=== PATIENT | male | born 1980 | race Caucasian/White ===

== ENCOUNTER 2018-03-16 13:50 | Emergency (ER) | payer MEDICAID, SELFPAY ==
[2018-03-16 13:50] VITALS: BP 157/76; PULSE 103; RESP 16; TEMP 37.2; O2SAT 95; BMI 24.1
--- NOTE | 2018-03-16 14:33 | RAD_ITS ---
STUDY: X-RAY - RIGHT HAND REASON FOR EXAM: Male, 37 years old. Swelling and erythematous following injury. TECHNIQUE: 3 view(s) of the hand. COMPARISON: None. FINDINGS: Normal radiocarpal articulation. Normal distal radioulnar joint. Normal visualized carpal bones. Normal carpal articulations Normal carpometacarpal articulation of the thumb. Normal second through fifth carpometacarpal joints. Normal metacarpi. Normal metacarpophalangeal joint of the thumb. Normal interphalangeal joint of the thumb. Normal proximal and distal phalanges of the thumb. Normal metacarpophalangeal joints of the second through fifth fingers. Normal proximal and distal interphalangeal joints of the second through fifth fingers. Normal phalanges of the second through fifth fingers. Soft tissue swelling. RAD/Hand Min 3 Views IMPRESSION: Soft tissue swelling. Electronically Signed: Jose Angel Carlisle MD at 14:52 EDT Tel [phone], Service support ,
--- NOTE | 2018-03-16 14:56 | ED.VISSUMM ---
- ER Visit Summary Date of Service: 03/16/18 Chief Complaint: Right hand injury History of Present Illness: The patient is a 37 M who is right-hand dominant. Patient had a daniel on his skin for 5 days ago. He then hit his hand with a hammer 3 days ago. He is complaining of hand pain, redness, and swelling. Last tetanus update was 2 years ago. Physical Examination: Vital signs are remarkable for blood pressure 157/76, otherwise unremarkable. Patient sitting upright in bed no acute distress. He is nontoxic appearing. Right upper extremity examination significant for 1/2 cm superficial laceration over the index MCP joint. He has surrounding erythema. There is tenderness along the index metacarpal. There is no sign of flexor tenosynovitis. Test Results: Right hand x-rays are unremarkable per my review. Emergency Department Course and Treatment: Patient is treated with Naprosyn, Bactrim, and Keflex. He will be continued on his medications at home. If redness worsens or develops fever he is to present for IV antibiotics. Treatment Plan: [] Disposition: Discharge Impression: 1. Right hand cellulitis 2. Crush injury right hand This note was generated with [email or web address] dictation software. It may contain incorrect words, spelling, and punctuation that were not noted in review of the chart prior to signing ED Disposition - Plan for ED Patient: Chief Complaint: Upper Extremity Injury Referrals: Naun Garcia MD [Primary Care Provider] -
--- NOTE | 2018-03-16 15:00 | ED.DCSUM_ITS ---
- ER Visit Summary Date of Service: 03/16/18 Chief Complaint: Right hand injury History of Present Illness: The patient is a 37 M who is right-hand dominant. Patient had a daniel on his skin for 5 days ago. He then hit his hand with a hammer 3 days ago. He is complaining of hand pain, redness, and swelling. Last tetanus update was 2 years ago. Physical Examination: Vital signs are remarkable for blood pressure 157/76, otherwise unremarkable. Patient sitting upright in bed no acute distress. He is nontoxic appearing. Right upper extremity examination significant for 1/2 cm superficial laceration over the index MCP joint. He has surrounding erythema. There is tenderness along the index metacarpal. There is no sign of flexor tenosynovitis. Test Results: Right hand x-rays are unremarkable per my review. Emergency Department Course and Treatment: Patient is treated with Naprosyn, Bactrim, and Keflex. He will be continued on his medications at home. If redness worsens or develops fever he is to present for IV antibiotics. Treatment Plan: [] Disposition: Discharge Impression: 1. Right hand cellulitis 2. Crush injury right hand This note was generated with [employer] dictation software. It may contain incorrect words, spelling, and punctuation that were not noted in review of the chart prior to signing ED Disposition - Plan for ED Patient: Chief Complaint: Upper Extremity Injury Referrals: Naun Garcia MD [Primary Care Provider] -
--- NOTE | 2018-03-16 15:00 | ED.DEP ---
ED Disposition - Plan for ED Patient: Disposition: Home or Assisted Living Chief Complaint: Upper Extremity Injury Instructions: ED Crush Injury Finger No Fx, ED Infec Skin Cellulitis Prescriptions: Cephalexin [Keflex] 500 mg PO Q6 #40 capsule Naproxen [Naprosyn] 500 mg PO BID #14 tablet Smz/Tmp Ds [Bactrim Ds] 1 tablet PO BID #20 tablet Referrals: Naun Garcia MD [Primary Care Provider] - 1 Week
[2018-03-16] MEDS: Naproxen 500 MG Tablet PO (15:13)
[2018-03-16] MEDS: Smz/Tmp Ds Tablet 1 TABLET PO (15:13)
[2018-03-16] MEDS: Cephalexin 250 MG Capsule 500 MG PO (15:13)
[2018-03-16 15:14] VITALS: BP 143/87; PULSE 96; RESP 14; O2SAT 98
== END 2018-03-16 15:20 | disposition home or self-care (01) ==
PROVIDERS: Emergency Provider Emergency Medicine
DX: L03.113 Cellulitis of right upper limb (principal); S67.21XA Crushing injury of right hand, initial encounter; W22.8XXA Striking against or struck by other objects, initial encounter; Y93.9 Activity, unspecified; Y92.89 Other specified places as the place of occurrence of the external cause; Y99.9 Unspecified external cause status; E11.9 Type 2 diabetes mellitus without complications
CPT/HCPCS: 73130; 99282

== ENCOUNTER 2018-06-05 02:33 | Emergency (ER) | payer MEDICAID, SELFPAY ==
[2018-06-05 02:33] VITALS: BP 158/91; PULSE 104; RESP 20; TEMP 36.7; O2SAT 100; BMI 23.9
[2018-06-05] MEDS: Naproxen 500 MG Tablet PO (03:14)
[2018-06-05] MEDS: Smz/Tmp Ds Tablet 1 TABLET PO (03:14)
--- NOTE | 2018-06-05 03:56 | ED.VISSUMM ---
- ER Visit Summary Date of Service: 06/05/18 Chief Complaint: Wound eval left fifth digit History of Present Illness: The patient is a 37 M presents for evaluation of his left fifth digit. States he cut it accident with a carving knife 2 days ago. Increased swelling. States his drainage. No fever, chills, sweats. He is a diabetic. Similar symptoms in the past placed on Bactrim with improvement. Physical Examination: General: Alert and oriented ?3, no acute distress HEENT: Normocephalic, atraumatic. Moist mucosa membranes Neck: supple, nontender. Cardiovascular: Regular rate and rhythm, no murmurs Respiratory: Normal breath sounds, symmetric, no distress Abdomen: Soft, nontender, nondistended Extremities: Left hand: Fifth digit noted 1 cm healing laceration across the dorsal PIP joint. No active bleeding or drainage. There is swelling of the finger proximal and middle phalanx. There is no streaking up the hand. Neuro: no focal neurological deficits. Test Results: [] Emergency Department Course and Treatment: Patient with swelling to the digit with the redness. There is no streaking. [place] is 1 out of 4. Afebrile in the ED. wound care discussed. He started on Bactrim and naproxen. Signs and symptoms discussed return. Otherwise follow-up with PCP. Treatment Plan: [] Disposition: Discharge Impression: 1. Left fifth digit laceration 2. Left fifth digit cellulitis This note was generated with [employer] dictation software. It may contain incorrect words, spelling, and punctuation that were not noted in review of the chart prior to signing ED Disposition - Plan for ED Patient: Disposition: Home or Assisted Living Chief Complaint: Wound Diagnosis: left 5th digit cellulitis Instructions: ED Infec Skin Cellulitis Prescriptions: Naproxen [Naprosyn] 500 mg PO BID #20 tablet Smz/Tmp Ds [Bactrim Ds] 1 tablet PO BID #20 tablet Referrals: [facility] Doctor,Out of [Primary Care Provider] - 3-5 Days
[2018-06-05 04:18] VITALS: RESP 12
== END 2018-06-05 04:19 | disposition home or self-care (01) ==
PROVIDERS: Emergency Provider Emergency Medicine
DX: L03.012 Cellulitis of left finger (principal); S61.217A Laceration without foreign body of left little finger without damage to nail, initial encounter; W26.0XXA Contact with knife, initial encounter; Y93.9 Activity, unspecified; Y92.89 Other specified places as the place of occurrence of the external cause; Y99.9 Unspecified external cause status; E11.9 Type 2 diabetes mellitus without complications; I10 Essential (primary) hypertension; Z72.0 Tobacco use
CPT/HCPCS: 99283

== ENCOUNTER 2018-06-07 01:58 | Emergency (ER) | payer MEDICAID, SELFPAY ==
[2018-06-07 02:00] VITALS: BP 142/77; PULSE 113; RESP 17; TEMP 36.6; O2SAT 100; BMI 23.5
--- NOTE | 2018-06-07 02:42 | RAD_ITS ---
STUDY: X-RAY - LEFT HAND, ATTENTION FIFTH FINGER REASON FOR EXAM: Male, 37 years old. Laceration to the left fifth finger, now with swelling. TECHNIQUE: 3 view(s) of the finger were obtained. COMPARISON: None. FINDINGS: Normal metacarpal head. Normal metacarpophalangeal joint. Normal proximal phalanx. Normal middle phalanx. Normal distal phalanx. Normal proximal interphalangeal joint. Normal distal interphalangeal joint. Soft tissue swelling involving the fifth digit. No soft tissue foreign body. No subcutaneous gas. RAD/Finger(s) Min 2 Views IMPRESSION: Soft tissue swelling of the left fifth finger with no underlying fracture or dislocation and no soft tissue foreign body or gas loculation. Electronically Signed: Lyle Ramirez MD at 3:20 EDT Tel , Service support ,
--- NOTE | 2018-06-07 02:45 | ED.VISSUMM ---
- ER Visit Summary Date of Service: 06/07/18 Chief Complaint: Left small finger red, swollen and infected History of Present Illness: The patient is a 37 M hand dominant. He is an insulin-dependent to has an insulin pump. States on accidentally nicked the dorsum of his left small finger with a knife. It then became infected. He was seen in the ER a day or so ago. Charted on Bactrim which is only taken 2 dosages so far. And the finger is now more red, swollen than it was previously. He denies any fever. He denies any streaking. Physical Examination: Well-appearing young male. Vital signs are stable and afebrile. He does not look septic or toxic. H EENT exam unremarkable. Neck nontender no lymphadenopathy. Lungs clear to auscultation bilaterally. Heart regular rhythm no murmur. Abdomen soft nontender. Extremities moves all 4. Neurovascular intact. His left small finger is significantly red and swollen. He is able however to do complete extension and flexion flexion is somewhat limited due to pain and more so the amount of swelling. Distally he has cap refill and touch sensation. Currently he does not have tenosynovitis. He does have a sausage digit. There is no lymphangitic streaking in his form. And no swollen or tender left axillary lymphadenopathy. Neurologically is awake and alert without focal motor deficits. Test Results: History normal except for a sodium of 135. Blood sugars elevated at 434. Normal creatinine and gap. CBC is pending. X-ray of his left small finger showed soft tissue swelling. No bony abnormality. No subcu gas. Read both by myself and the radiologist. Emergency Department Course and Treatment: Patient is a severely swollen and infected left small finger with cellulitis. This could develop into tenosynovitis. He will need to be started on IV antibiotics and admitted. He will be started on IV Zosyn. I will speak to the hospitalist about admission. Treatment Plan: IV antibiotics and admission. Patient states he absolutely has to go home and get his insulin pump equipment and then states he will come back to be admitted. He understands he could lose his finger or have an overwhelming infection or develop DKA. He did not want any antibiotics started at this time until he returns. He did not want any insulin at this time for his hyperglycemia and states he will take care of that at home. Disposition: Admission Impression: Left small finger cellulitis Acute hyperglycemia with a history of insulin-dependent diabetes Signing out AMA and plans to return to be admitted This note was generated with [employer] dictation software. It may contain incorrect words, spelling, and punctuation that were not noted in review of the chart prior to signing ED Disposition - Plan for ED Patient: Chief Complaint: Wound Referrals: [facility] Doctor,Out of [Primary Care Provider] -
--- NOTE | 2018-06-07 03:05 | ED.RN ---
PT REPORTS TO THIS RN THAT HE NEEDS TO GO HOME TO GET HIS BELONGINGS AND SUPPLIES TO MANAGE HIS INSULIN PUMP. THIS RN CALLED TO PHARMACY TO SEE IF THERE WAS A WAY TO GET HIS SUPPLIES HERE AT THE HOSPITAL. PT EDUCATED THAT IF HE LEAVES DURING HIS TX, THAT HE WILL HAVE TO SIGN OUT AMA. PT BLOOD DRAWN AND XRAY COMPLETED. DR. SHIPLEY. INFORMED. CHARGE NURSE MINOR INFORMED.
[2018-06-07 03:17] LABS: Absolute Lymphocyte Count 1.72 X10^3/ul (0.83-4.51); Basophil# 0.03 X10^3/uL; Basophil% 0.3 % (0-1); Eosinophil# 0.39 X10^3/uL; Eosinophils% 3.6 % (0-5); Hematocrit 37.9 % (40-54); Hemoglobin 13.6 g/dl (13.0-16.5); Lymphocyte # 1.72 X10^3/ul (4.0); Lymphocyte % 15.7 % (19-41); Mean Corp Hgb Conc 35.9 g/gl (32-36); Mean Corpuscular Hgb 31.9 pg (27.0-32.0); Monocyte# 0.77 X10^3/uL; Neutrophil # 8.02 X10^3/uL (2.7-7.7); Neutrophil % 73.2 % (47-70); Platelet Count 293 K/mm3 (150-450); RBC Distribution Width SD 38.7 fl (35.1-43.9); Red Blood Count 4.26 M/mm3 (4.6-6.2)
[2018-06-07 03:24] LABS: Anion Gap 8 (5-15); BUN 10 mg/dL (7-18); BUN/Creat Ratio 9.1 RATIO (10-20); Calcium,Total 8.3 mg/dL (8.5-10.1); Chloride 99 mmol/L (98-107); EST Glomerular Filtration Rate 81 mL/min (>60); Est Glom Filt Rate - Afr Amer 98 mL/min (>60); Estimated Creatinine Clearance 87.63 ml/min; Glucose 434 mg/dL (74-106); Potassium 4.1 mmol/L (3.5-5.1); Sodium Level 135 mmol/L (136-145)
--- NOTE | 2018-06-07 03:33 | DCINST.ED_ITS ---
ED Disposition - Plan for ED Patient: Disposition: Home or Assisted Living Chief Complaint: Wound Instructions: ED Infec Skin Cellulitis Referrals: [facility] Doctor,Out of [Primary Care Provider] - Additional Instructions: Go home and take care of whatever you need to. Return to the ER and we will get you admitted for IV antibiotics her finger. Take your insulin as needed at home. Understand that if you do not come back you are risking the loss of your left small finger due to a worsening infection or other complications that could develop.
[2018-06-07 03:34] VITALS: BP 142/77; PULSE 113; RESP 15
[2018-06-07 03:35] LABS: POSITIVE COUNT NO; POSITIVE DIFFERENTIAL NO; POSITIVE MORPHOLOGY NO
--- NOTE | 2018-06-07 03:35 | ED.RN ---
PT REPORTS HE NEEDS TO SIGN OUT AMA IN ORDER TO GO HOME & GET HIS SUPPLIES FOR HIS INSULIN PUMP AND THEN HE WILL COME BACK FOR ADMISSION TO [facility].
== END 2018-06-07 03:35 | disposition home or self-care (01) ==
PROVIDERS: Emergency Provider Emergency Medicine
DX: L03.012 Cellulitis of left finger (principal); E11.65 Type 2 diabetes mellitus with hyperglycemia; Z79.4 Long term (current) use of insulin
CPT/HCPCS: 36415; 73140; 80048; 85025

== ENCOUNTER 2018-06-07 06:28 | Inpatient (IN) | payer MEDICAID, SELFPAY ==
[2018-06-07] VITALS (9 sets, daily range): BP systolic 125–155; BP diastolic 72–84; PULSE 80–118; RESP 16–20; TEMP 36.6–37; O2SAT 97–99; BMI 23.7; BMI 23.8
[2018-06-07 07:06] LABS: Bedside Glucose 127 mg/dL (70-110)
--- NOTE | 2018-06-07 07:15 | NURSING ---
DR HAMMOND CALLED BACK
--- NOTE | 2018-06-07 07:24 | NURSING ---
MED SURG LEFT FIFTH TOE CELLULITIS ASHELFAH
[2018-06-07] MEDS: 0.9% Normal Saline 1,000 ML 100 ML IV ×2 (08:30→20:23)
[2018-06-07 08:34] LABS: Erythrocyte Sedimentation Rate 15 mm/hr (0-15)
[2018-06-07] MEDS: Vancomycin IV 1,000 MG/200 ML BAG 200 MG IV (08:40)
[2018-06-07 08:51] LABS: Hemoglobin A1c 11.6 % (4.2-6.3)
--- NOTE | 2018-06-07 09:03 | HP.PCM_ITS ---
Problem List (1) Cellulitis of the left fifth finger Status: Acute (2) Type 1 diabetes mellitus Status: Chronic History of Present Illness Date of Admission: 06/07/18 Chief Complaint: Left fifth finger swelling, redness and pain. The patient is a 37 year old M with past medical history as mentioned above presented to the emergency room for left fifth finger swelling, erythema and pain. His symptoms started 3 days ago when he had a small cut on the dorsal aspect of the left fifth finger accidentally with a carving knife. On the second day after he had that cut, his left fifth finger starts to swell up, became red and he has some pain. He came to the emergency room that day, was evaluated and was discharged home on Bactrim. He returned to the emergency department this morning for worsening erythema, swelling and pain. He complains of left fifth finger pain, dull aching pain, 8 and half out of 10 in severity, not radiating, associated with increasing swelling and redness of that finger, pain aggravated by movement of his finger and without relieving factors. He mentioned that he took his Bactrim for the last couple of days without any improvement. He denies fever or chills. He does have diabetes type 1 and he has been on insulin pump and he mentioned that his blood sugar usually not controlled and usually in the 400s. In the emergency department, patient was tachycardic, afebrile, blood pressure was not elevated, pulse ox is maintained on room air. His routine blood work was unremarkable. His ESR was normal, CRP was elevated. His hemoglobin A1c was 11.6. X-ray of the left fifth finger revealed soft tissue swelling. He is being admitted for left fifth finger cellulitis with failure of outpatient therapy. Past Medical History Past Medical History (Chronic Problems): Chronic Problems Type 1 diabetes mellitus (Chronic) Allergies fexofenadine [From Funmi] Adverse Reaction (Verified 06/07/18 06:31) Vomiting meloxicam Adverse Reaction (Verified 06/07/18 06:31) Vomiting Home Medications: Ambulatory Orders Medication Instructions Recorded Insulin Lispro [Humalog] 0 unit SQ PRN PRN 03/16/18 Lisinopril [Zestril] 20 mg PO QHS 03/16/18 Naproxen [Naprosyn] 500 mg PO BID #20 tablet 06/05/18 Smz/Tmp Ds [Bactrim Ds] 1 tablet PO BID #20 tablet 06/05/18 Surgical History: no surgical history Psychiatric History: No pertinent psych hx Lives: Spouse/ Significant Other Smoking Status: Current every day smoker Tobacco Use: Cigarettes Alcohol: Rare Drugs: None - *Family History Maternal History Items: No pertinent history Paternal History Items: No pertinent history Review of Systems Constitutional: Denies: Anorexia, Chills, Fever, Weakness Eyes: Denies: Blurred vision, Double vision, Drainage, Redness HEENT: Denies: Difficulty Hearing, Dysphasia, Eye Pain, Nasal Congestion, Sore Throat Cardiovascular: Denies: Chest Pain, Chest Pressure, Chest Tightness, Edema, Heaviness, Light Headedness, Palpitations, Syncope Respiratory: Denies: Cough, Pleuritic Pain, Shortness of Breath, Sputum production, Wheezing Gastrointestinal: Denies: Abdominal Pain, Constipation, Diarrhea, Nausea, Vomiting Genitourinary: Denies: Dysuria, Frequency, Hematuria Musculoskeletal: Reports: Hand Pain, - - Finger pain.. Denies: Arm Pain, Back Pain, Foot Pain Skin: Denies: Dryness, Rash Neurological: Denies: Balance problems, Blurred vision, Change in Speech, Slurred speech, Confusion, Headaches, Incoordination, Numbness Psychiatric: Denies: Anxiety, Depression Endocrine: Denies: Change in Body Habitus, Polydipsia VTE Information - Inpt Only VTE Present on Admission: No VTE Mechan Device Prophylaxis: None VTE Pharm Prophylaxis ordered?: No Patient Problems: Active and Suspected Problems Cellulitis of the left fifth finger (Acute) - Physical Exam General: Alert, Oriented x3, Cooperative, No apparent distress HEENT: Atraumatic, PERRLA, EOMI, Normocephalic Oral: Moist Mucosa, No Gingival or Mucosal Lesions/ Ulcerations Neck: Supple, No JVD, Negative Carotid Bruits, Trachea Midline, Thyroid Normal Size and Texture Lungs: Clear to auscultation, Normal air movement, No rhonchi, No wheeze, No rales Cardiovascular: Regular rate, Regular Rhythm, Normal S1, Normal S2, No murmurs, PMI Normal, Tachycardic Abdomen: Bowel Sounds Present, Soft, Non Tender, Non-Distended, No Hepato- splenomegaly Extremities: No clubbing, No cyanosis, No edema, - Skin: No rashes, No breakdown, - - Left fifth finger: Swelling and erythema involving the whole left fifth finger, tender to palpation, small cut on the dorsal aspect of the left fifth finger. Lymphatic: No Cervical, Supraclavicular, or Inguinal Adenopathy Neurological: Cranial nerves II-XII grossly intact, Motor Exam 5/5 strength throughout Psych/Mental Status: Normal Affect, Appropriate, Alert and oriented to time, place, person, mood and affect Vital Signs Temp Pulse Resp BP Pulse Ox 98.1 F 118 H 20 H 155/84 H 99 06/07/18 06:29 06/07/18 06:29 06/07/18 06:29 06/07/18 06:29 06/07/18 06:29 Weight: 152 lb 4.8 oz Body Mass Index (BMI) 23.8 Laboratory Tests Past 24 Hrs 06/07/18 08:10 S.aureus Protein A PCR Pending MRSA (PCR) Pending Laboratory data: WBC 11, hemoglobin 15.6, platelet count is 293,000. Sodium 135, potassium 4.1, chloride 99, bicarb is 28, BUN 10, creatinine 1.1, glucose 434. ESR 15, C-reactive protein is 73.6, hemoglobin A1c is 11.6. Assessment/Plan All Active Problems Cellulitis of the left fifth finger (Acute) This is a 37 years old male patient presented to the emergency room because of worsening left fifth finger pain, swelling and erythema after he had a small accidental cut by a knife, was started on Bactrim 2 days ago and he returned to the ED because of worsening symptoms and he is being admitted for acute bacterial left fifth finger cellulitis with failure of outpatient therapy. #1 acute left fifth finger cellulitis: Without evidence of sepsis or severe sepsis. He is tachycardic, afebrile, blood pressure stable, pulse ox is maintained on room air. He has no leukocytosis. X-ray of the left fifth finger reviewed, revealed soft tissue swelling, no fractures. His sounds normal , CRP is elevated. Plan: Admit to [facility] floor, wound culture, blood culture, IV fluids, Tylenol as needed, OxyIR as needed, IV vancomycin, wound MRSA screen , repeat CBC and BMP tomorrow morning. #2 uncontrolled type 1 diabetes mellitus: Patient is on insulin pump. He mentioned that his blood sugars usually in the 400s. His hemoglobin A1c is 11.6. Blood sugar is 434. Plan: ADA diet, Accu-Cheks, insulin sliding scale, continue insulin by insulin pump, continue lisinopril. #3 DVT prophylaxis: Low risk patient, no prophylaxis indicated. This note was generated with [employer] dictation software. It may contain incorrect words, spelling, and punctuation that were not noted in checking the note before signing. Code Visit Inpatient E&M: 01332 Init Hosp L3
--- NOTE | 2018-06-07 10:30 | CASEMGMT ---
RN EZEKIEL Face to Face with patient for initial transition planning/care coordination assessment. RN CM introduced self and role at [facility]. Patient lying in bed, alert and oriented. Patient willing to participate in assessment and is able to answer all questions appropriately. Care providers, pharmacy, and demographics verified. See link attached. Patient wishes to discharge home, denies need for home health at this time. Patient states he has no further needs or concerns at this time. CM to follow for discharge planning needs that may arise. Disposition Plan: Patient to discharge home with follow-up plans in place.
[2018-06-07 11:27] LABS: M R Staph aureus DNA By PCR Negative (Negative); Probe Check PASS; Staph aureus DNA By PCR POSITIVE (Negative)
[2018-06-07 12:46] LABS: Bedside Glucose 143 mg/dL (70-110)
[2018-06-07] MEDS: Cefazolin 2 GM in 0.9% Normal Saline 100 ML IV ×2 (14:25→22:37)
[2018-06-07 17:20] LABS: Bedside Glucose 142 mg/dL (70-110)
--- NOTE | 2018-06-07 18:48 | NURSING ---
PATIENT STATES HE WANTS A CIGARETTE. EXPLAINED HOSPITAL POLICY TO PATIENT. OFFERED TO GET NICOTINE PATCH OR GUM ORDERED. PT DENIES NEED. WILL MONITOR.
[2018-06-07] MEDS: Lisinopril 20 MG Tablet PO (22:36)
[2018-06-07] MEDS: Insulin Bolus Pump SC (22:37)
[2018-06-07 22:46] LABS: Bedside Glucose 258 mg/dL (70-110)
[2018-06-07] MEDS: Acetaminophen 325 MG Tablet 650 MG PO (23:00)
[2018-06-08] VITALS (10 sets, daily range): BP systolic 109–132; BP diastolic 75–92; PULSE 64–90; RESP 16–18; TEMP 36.4–37; O2SAT 97–99
--- NOTE | 2018-06-08 03:06 | NURSING ---
Patient outside of nursing station waving at this nurse to come and assist him. I went to patient to see what was wrong. Patient appeared very anxious and upset. Stated nursing staff had not been in his room for over 2 hours and his pain was unbearable in his right hand. He showed that his left hand was wear the infection was. He said he wanted to speak to the charge nurse. I informed patient I would notify both Annabelle and Mary. Patient left for room at a quick walk, visibly frustrated. SHAN Alanis, notified.
[2018-06-08] MEDS: LORazepam 0.5 MG Tablet PO (03:37)
[2018-06-08 03:46] LABS: Bedside Glucose 110 mg/dL (70-110)
[2018-06-08] MEDS: Cefazolin 2 GM in 0.9% Normal Saline 100 ML IV ×3 (06:02→22:51)
[2018-06-08 06:18] LABS: Absolute Lymphocyte Count 2.66 X10^3/ul (0.83-4.51); Absolute Neutrophil Count 4.2 X10^3/uL (2.0-7.7); Basophil# 0.05 X10^3/uL; Basophil% 0.6 % (0-1); Eosinophil# 0.45 X10^3/uL; Eosinophils% 5.6 % (0-5); Hematocrit 40.1 % (40-54); Hemoglobin 13.8 g/dl (13.0-16.5); Lymphocyte # 2.66 X10^3/ul (4.0); Lymphocyte % 33.1 % (19-41); Mean Corp Hgb Conc 34.4 g/gl (32-36); Mean Corpuscular Hgb 31.5 pg (27.0-32.0); Mean Corpuscular Volume 91.6 fL (80-94); Mean Platelet Vol. 9.9 fl (6.2-12.0); Monocyte# 0.64 X10^3/uL; Neutrophil # 4.22 X10^3/uL (2.7-7.7); Neutrophil % 52.6 % (47-70); Platelet Count 315 K/mm3 (150-450); RBC Distribution Width CV 12.4 % (11.6-14.6); RBC Distribution Width SD 40.9 fl (35.1-43.9); Red Blood Count 4.38 M/mm3 (4.6-6.2)
[2018-06-08 06:26] LABS: POSITIVE COUNT NO; POSITIVE DIFFERENTIAL NO; POSITIVE MORPHOLOGY NO
[2018-06-08 06:41] LABS: Anion Gap 6 (5-15); BUN 8 mg/dL (7-18); BUN/Creat Ratio 8.9 RATIO (10-20); Calcium,Total 8.1 mg/dL (8.5-10.1); Chloride 107 mmol/L (98-107); EST Glomerular Filtration Rate 102 mL/min (>60); Est Glom Filt Rate - Afr Amer 123 mL/min (>60); Estimated Creatinine Clearance 107.11 ml/min; Glucose 62 mg/dL (74-106); Potassium 3.8 mmol/L (3.5-5.1); Sodium Level 141 mmol/L (136-145)
[2018-06-08] MEDS: 0.9% Normal Saline 1,000 ML 100 ML IV ×2 (09:11→22:00)
--- NOTE | 2018-06-08 09:35 | PN_ITS ---
Patient Problems: Active and Suspected Problems Cellulitis of the left fifth finger (Acute) Subjective: Chief complaint: Follow-up after admission for acute left fifth finger cellulitis. Patient seen and examined. No acute events overnight. Pain on the left fifth finger is getting better. Also, swelling is more localized to mid interphalangeal joints, erythema is getting better. He has been afebrile, heart rate is down to normal, blood pressure stable. - Physical Exam General: Alert, Oriented x3, Cooperative, No apparent distress HEENT: Atraumatic, PERRLA, EOMI Oral: Moist Mucosa, No Gingival or Mucosal Lesions/ Ulcerations Neck: Supple, No JVD, Negative Carotid Bruits, Trachea Midline, Thyroid Normal Size and Texture Lungs: Clear to auscultation, Normal air movement, No rhonchi, No wheeze, No rales Cardiovascular: Regular rate, Regular Rhythm, Normal S1, Normal S2, No murmurs Abdomen: Bowel Sounds Present, Soft, Non Tender, Non-Distended, No Hepato- splenomegaly Extremities: No clubbing, No cyanosis, No edema Skin: No rashes, No breakdown Lymphatic: No Cervical, Supraclavicular, or Inguinal Adenopathy Neurological: Cranial nerves II-XII grossly intact, Motor Exam 5/5 strength throughout Psych/Mental Status: Normal Affect, Appropriate, Alert and oriented to time, place, person, mood and affect Vital Signs Temp Pulse Resp BP Pulse Ox 98.6 F 82 16 132/79 H 99 06/08/18 02:15 06/08/18 07:39 06/08/18 02:15 06/08/18 02:15 06/08/18 02:15 Oxygen Delivery Method Room Air Weight: 152 lb 4.8 oz Body Mass Index (BMI) 23.8 Intake and Output for Last 24 Hours 06/06/18 06/07/18 06/08/18 23:59 23:59 23:59 Intake Total 2606 / 2606 1321 / 1321 Balance 2606 / 2606 1321 / 1321 Microbiology Past 72 Hours 06/07/18 08:10 Gram Stain - Final Wound Drainage - Hand Laboratory Tests Past 24 Hrs 06/07/18 06/08/18 06/08/18 08:10 05:54 05:54 WBC 8.0 RBC 4.38 L Hgb 13.8 Hct 40.1 MCV 91.6 MCH 31.5 MCHC 34.4 RDW 12.4 RDW Differential 40.9 Plt Count 315 MPV 9.9 Immature Gran % (Auto) 0.100 Neut % (Auto) 52.6 Lymph % (Auto) 33.1 [place] % (Auto) 8.0 Eos % (Auto) 5.6 H Baso % (Auto) 0.6 Absolute Neuts (auto) 4.2 Absolute Lymphs (auto) 2.66 Total Counted Not Reportable Sodium 141 Potassium 3.8 Chloride 107 Carbon Dioxide 28.0 Anion Gap 6 BUN 8 Creatinine 0.90 Estim Creat Clear Calc 107.11 Est GFR (MDRD) Af Amer 123 Est GFR (MDRD) Non-Af 102 BUN/Creatinine Ratio 8.9 L Glucose 62 L Calcium 8.1 L S.aureus Protein A PCR POSITIVE H MRSA (PCR) Negative POC Glucose 06/08/18 06/07/18 06/07/18 03:41 22:33 17:09 POC Glucose 110 258 H 142 H 06/07/18 11:54 POC Glucose 143 H Medical Necessity - Tobacco Use Smoking Status: Current every day smoker Tobacco Use: Cigarettes Assessment/Plan All Active Problems Cellulitis of the left fifth finger (Acute) This is a 37 years old male patient presented to the emergency room because of worsening left fifth finger pain, swelling and erythema after he had a small accidental cut by a knife, was started on Bactrim 2 days ago and he returned to the ED because of worsening symptoms and he is being admitted for acute bacterial left fifth finger cellulitis with failure of outpatient therapy. #1 acute left fifth finger cellulitis: He is on IV cefazolin. He has been afebrile overnight, no leukocytosis. Heart rate is back down to normal, blood pressure stable. Swelling and erythema of the left fifth finger is more localized today, pain is getting better. X-ray of the left fifth finger reviewed, revealed soft tissue swelling, no fractures. His sounds normal, CRP is elevated. Blood cultures pending, wound culture showed no organism, final is pending. Plan to continue same treatment, reassess later today. #2 uncontrolled type 1 diabetes mellitus: He is on insulin pump as well as sliding scale. Blood sugar has been stable. Patient is on insulin pump. He mentioned that his blood sugars usually in the 400s. His hemoglobin A1c is 11.6. Plan to continue same treatment. #3 DVT prophylaxis: Low risk patient, no prophylaxis indicated. This note was generated with [employer] dictation software. It may contain incorrect words, spelling, and punctuation that were not noted in checking the note before signing. Code Visit Inpatient E&M: 90388 Subs Hosp L2
[2018-06-08 10:51] LABS: Bedside Glucose 126 mg/dL (70-110)
[2018-06-08] MEDS: Acetaminophen 325 MG Tablet 650 MG PO (14:27)
[2018-06-08] MEDS: ALPRAZolam 0.5 MG Tablet PO (18:16)
[2018-06-08] MEDS: Lisinopril 20 MG Tablet PO (22:52)
[2018-06-08] MEDS: Insulin Bolus Pump SC (22:57)
[2018-06-08 23:10] LABS: Bedside Glucose 162 mg/dL (70-110)
[2018-06-09] MEDS: Acetaminophen 325 MG Tablet 650 MG PO (01:14)
[2018-06-09 02:59] VITALS: PULSE 75
[2018-06-09 04:00] VITALS: BP 123/72; PULSE 71; RESP 18; TEMP 36.6; O2SAT 100
[2018-06-09 04:38] VITALS: PULSE 92
[2018-06-09] MEDS: Cefazolin 2 GM in 0.9% Normal Saline 100 ML IV (06:21)
[2018-06-09 07:05] LABS: Bedside Glucose 90 mg/dL (70-110)
[2018-06-09 07:50] VITALS: PULSE 61
[2018-06-09 08:15] VITALS: BP 104/56; PULSE 76; RESP 16; TEMP 36.4; O2SAT 96
--- NOTE | 2018-06-09 09:33 | DCINST_ITS ---
- Discharge Diagnoses Current Active Problems: Current Active and Chronic Problems Cellulitis of the left fifth finger (Acute) Type 1 diabetes mellitus (Chronic) You will use the following diet at home:: Calorie/Carbohydrate Controlled ( specify 1200, 1400, etc) - 1800 wiley Your food should be the consistency of: Regular Discharge Activity: Return to Normal Activity Weight Bearing Status: Full weight bearing Call your doctor if you observe: Fever of 101 or Higher, Shortness of breath, Dizziness, Fainting spells, Chest pain, Increased palpitations (irregular heartbeat), Uncontrolled pain Additional Instructions: Use [id number] Aleve or Tylenol as needed for pain. Allergies/Adverse Reactions: Allergies fexofenadine [From Funmi] Adverse Reaction (Verified 06/07/18 06:31) Vomiting meloxicam Adverse Reaction (Verified 06/07/18 06:31) Vomiting Medications to take at Discharge Insulin Lispro [Humalog] 0 unit SQ PRN PRN 03/16/18 Lisinopril [Zestril] 20 mg PO QHS 03/16/18 Naproxen [Naprosyn] 500 mg PO BID #20 tablet 06/05/18 Cefadroxil [Duricef] 1,000 mg PO BID #30 cap 06/09/18 The following prescriptions were given: Cefadroxil [Duricef] 1,000 mg PO BID #30 cap Primary Care Physician: Care Physician,No Primary [Primary Care Provider] - Please follow up with your Primary Care Physician in: 1 week. Test Results: Test results from this visit will be discussed in further detail at your follow- up appointment, if applicable.
--- NOTE | 2018-06-09 12:35 | DS.PCM_ITS ---
Discharge Date and Diagnosis Date of Admission: 06/07/18 Date of Discharge: 06/09/18 - Primary Discharge Diagnosis #1 acute left fifth finger MSSA cellulitis. #2 uncontrolled type 2 diabetes mellitus. - Secondary Discharge Diagnosis Chronic Problems Type 1 diabetes mellitus (Chronic) Hospital Course and Treatment Operations: None Procedures: None Summary of Care Provided: Patient seen and examined on the day of discharge and appeared to be stable to be discharged home. Swelling and erythema of the left fifth finger continue to improve, less swollen and less red with localized swelling. Patient has been afebrile. Other vital signs are stable. - Physical Exam General: Alert, Oriented x3, Cooperative, No apparent distress. HEENT: Atraumatic, PERRLA, EOMI. Neck: Supple, No JVD, Negative Carotid Bruits, Trachea Midline, Thyroid Normal. Lungs: Clear to auscultation, Normal air movement, No rhonchi, No wheeze, No rales. Cardiovascular: Regular rate, Regular Rhythm, Normal S1, Normal S2, PMI Normal. Abdomen: Bowel Sounds Present, Soft, Non Tender, Non-Distended, No Hepato- splenomegaly. Extremities: No clubbing, No cyanosis, No edema Skin: No rashes, No breakdown. Left fifth finger: Erythema and swelling is improving, down to the middle interphalangeal joint and surrounding area, no fluctuation. Neurological: Neuro grossly intact Vital Signs are stable. Hospital course: The patient is a 37 year old M admitted because of worsening left fifth finger pain, swelling and erythema after he had an accidental cut by a knife and the field outpatient therapy with Bactrim. Upon admission, there was no evidence of sepsis with sepsis. His routine blood work was unremarkable, no leukocytosis. His ESR was normal but CRP was elevated. Initially, he was treated with IV vancomycin. His MRSA screen of his wound was negative. Staph aureus protein was positive by PCR. MRSA screen came back negative, patient was started on IV cefazolin. Main afebrile throughout admission. With IV antibody therapy, swelling and erythema of the left fifth finger improved. Blood culture showed no growth up to the time of discharge. Wound culture revealed MSSA. She has a history of type 2 diabetes mellitus and apparently, it is uncontrolled although his blood sugar has been stable throughout this admission and we just continued his insulin pump in addition to insulin sliding scale. His hemoglobin A1c was 11.6. Patient discharged home in a stable medical condition, discharged on Duricef 1000 mg p.o. twice daily for 7 more days of treatment, recommended to keep using his insulin pump as described, continued on lisinopril, recommended from PCP in 1 week. Discharge Activity: Return to Normal Activity Weight Bearing Status: Full weight bearing Call your doctor if you observe: Fever of 101 or Higher, Shortness of breath, Dizziness, Fainting spells, Chest pain, Increased palpitations (irregular heartbeat), Uncontrolled pain Home Medications: Medications to take at Discharge Insulin Lispro [Humalog] 0 unit SQ PRN PRN 03/16/18 Lisinopril [Zestril] 20 mg PO QHS 03/16/18 Naproxen [Naprosyn] 500 mg PO BID #20 tablet 06/05/18 Cefadroxil [Duricef] 1,000 mg PO BID #30 cap 06/09/18 Following Prescrptions Were Given to Patient: Cefadroxil [Duricef] 1,000 mg PO BID #30 cap Primary Care Physician: Care Physician,No Primary [Primary Care Provider] - Please follow up with your Primary Care Physician in: 1 week. Disposition: Home Minutes spent on discharge:: 26 Patient Condition:: Stable Medical Necessity - Tobacco Use Smoking Status: Current every day smoker Tobacco Use: Cigarettes Meaningful Use Info Meaningful Use Diagnoses (Choose all that apply): None applicable Code Visit Inpatient E&M: 38669 Disch Hosp
--- NOTE | 2018-06-10 14:51 | CASEMGMT ---
RN CM DISCHARGE FOLLOW-UP PHONE CALL: KIRKGonzalez: Becki STRATA: 3 DISCHARGE DATE: 06/09/18 DX: CELLULITIS LEFT 5TH FINGER RN CM attempted discharge phone call @ [phone]. No answer and automated messaged stated voicemail is full and unable to accept messages. Alvin BSN RN CM
== END 2018-06-09 10:25 | disposition home or self-care (01) | DRG 277 ==
LOC: ED 06:56 → MS3 07:41
PROVIDERS: Family Medicine; Admitting Provider Hospitalist; Emergency Provider Emergency Medicine; Visit Provider Hospitalist
DX: L03.012 Cellulitis of left finger (principal); E10.65 Type 1 diabetes mellitus with hyperglycemia; A49.01 Methicillin susceptible Staphylococcus aureus infection, unspecified site; F17.210 Nicotine dependence, cigarettes, uncomplicated; Z79.4 Long term (current) use of insulin
CPT/HCPCS: 36415; 73140; 80048; 82962; 83036; 83735; 85025; 85652; 86140; 87040; 87070; 87075; 87077; 87186; 87205; 87640; 97802; 99282; 99283; J7030; A4216

== ENCOUNTER 2018-08-28 21:09 | Emergency (ER) | payer MEDICAID, SELFPAY ==
[2018-08-28 21:10] VITALS: BP 126/79; PULSE 88; RESP 18; TEMP 36.7; O2SAT 98; BMI 22.4
--- NOTE | 2018-08-28 22:05 | ED.DCSUM_ITS ---
- ER Visit Summary Date of Service: 08/28/18 Chief Complaint: Left thumb laceration History of Present Illness: The patient is a 37 M who has a left thumb laceration. He was using a chef's assistant's knife and cut his left thumb. He states that he cut off the tip of his left thumb. His tetanus is up-to-date. He was having a hard time controlling the bleeding. He is a type I diabetic. Physical Examination: Vital signs reviewed. Left hand exam reveals a fingertip avulsion of the left thumb. There is bleeding happening at this time. His neurologic exam is otherwise unremarkable. Test Results: None performed Emergency Department Course and Treatment: The patient does have a fingertip avulsion of the left thumb. Gelfoam was placed with good hemostasis. Nothing needs to be sutured at this time. He will keep the dressing on for 2 days. He will need to follow-up with his PCP for further testing. I do not feel he requires any antibiotics at this time. Treatment Plan: [] Disposition: Discharge Impression: Left thumb fingertip avulsion This note was generated with [employer] dictation software. It may contain incorrect words, spelling, and punctuation that were not noted in review of the chart prior to signing ED Disposition - Plan for ED Patient: Disposition: Home or Assisted Living Chief Complaint: Laceration Instructions: ED Laceration All Referrals: Care Physician,No Primary [Primary Care Provider] -
[2018-08-28 23:01] VITALS: BP 115/76; PULSE 76; RESP 17; O2SAT 98
== END 2018-08-28 23:03 | disposition home or self-care (01) ==
PROVIDERS: Emergency Provider Emergency Medicine
DX: S61.102A Unspecified open wound of left thumb with damage to nail, initial encounter (principal); W26.0XXA Contact with knife, initial encounter; Y93.89 Activity, other specified; Y92.9 Unspecified place or not applicable; Y99.9 Unspecified external cause status; E10.9 Type 1 diabetes mellitus without complications; Z72.0 Tobacco use
CPT/HCPCS: 99283

== ENCOUNTER 2019-02-22 01:37 | Emergency (ER) | payer MEDICAID, SELFPAY ==
[2019-02-22 01:38] VITALS: BP 148/83; PULSE 97; RESP 15; TEMP 37; O2SAT 98; BMI 22.8
[2019-02-22 01:40] VITALS: BP 148/83; PULSE 100; RESP 18; TEMP 37; O2SAT 100; O2SAT 99
--- NOTE | 2019-02-22 01:42 | ED.VIS.GEN ---
History of Present Illness Chief Complaint: Cough Informant: Patient Onset: Weeks - Onset greater than 1 week ago Context: Sudden Onset Timing: Intermittent Quality: Productive cough and shortness of breath Location: Respiratory Current Severity: Mild Maximum Severity: Moderate Worsened by: Smoking and activity Relieved by: Nothing Associated Symptoms: Productive cough, wheezing, dyspnea and AVILEZ Narrative: Patient is a 38-year-old male who smokes 1/2 pack/day presents because he is concerned he has pneumonia. Patient illness began last week. He states he felt better return to work. He continues to smoke 1/2 pack/day. He denies headache, photophobia, ear pain. He denies rhinorrhea, congestion or postnasal drainage. He denies sore throat. He denies pleuritic chest pain. He denies GI symptoms. He denies myalgias arthralgias. He denies rash. He states he has had pneumonia in the past. Prior similar symptoms: Yes Recent Illness/Hospitalization: No - Past Medical History (1) Community acquired pneumonia Status: Resolved (2) Type 1 diabetes mellitus Status: Chronic Past Medical History - Allergies and Home Meds Allergies/Adverse Reactions: Allergies fexofenadine [From Funmi] Adverse Reaction (Verified 02/22/19 01:37) Vomiting meloxicam Adverse Reaction (Verified 02/22/19 01:37) Vomiting Primary Care Physician: Care Physician,No Primary [Primary Care Provider] - Prior records reviewed: Yes Surgical History: no surgical history Lives: Alone Smoking Status: Current every day smoker Drugs: None - Family History Maternal Family History: Reports: No pertinent history Paternal Family History: Reports: No pertinent history Review of Systems General: Denies: Chills, Fever, Sweats Eyes: Denies: Visual changes - bilaterally, Blurred Vision - bilaterally, Diplopia ENT: Denies: Bilateral ear pain, Rhinorrhea, Sore throat Cardiovascular: Denies: Chest pain, Palpitations Respiratory: Reports: Dyspnea, Cough, Sputum, Dyspnea on exertion. Denies: Orthopnea, Paroxysmal nocturnal dyspnea Gastrointestinal: Denies: Abdominal pain, Nausea, Vomiting, Diarrhea, Melena, Hematochezia Genitourinary: Denies: Dysuria, Hematuria, Frequency Musculoskeletal: Denies: Myalgias, Arthralgias, Back pain, Extremity Pain Skin: Denies: Rash, Wounds Neurological: Denies: Headache, Weakness, Numbness Endocrine: Denies: Polyuria, Polydipsia Physical Exam Vital Signs/Narrative: Vital Signs Temp Pulse Resp BP Pulse Ox 02/22/19 01:40 98.6 F 100 18 148/83 H 100 02/22/19 01:38 98.6 F 97 15 148/83 H 98 Inital Vital Signs reviewed: Yes General: Well nourished, Well developed, No Acute Distress Head: Normocephalic, Atraumatic Eyes: Perrl, EOMI. Negative for: Pale conjunctiva, Scleral icterus ENT: Moist mucous membranes, No rhinorrhea, TM's clear Neck: Supple, Nontender, No lymphadenopathy, No JVD Cardiovascular: Regular rate, Regular rhythm, No murmurs Respiratory: No distress, Chest nontender, Rales - With egophony left mid lobe posteriorly. Back: Nontender, Normal Inspection Extremities: Nontender, No edema Skin: Normal color, No rash Neurological: Alert, Oriented x3, Cranial nerves II-XII grossly intact, Normal Strength, Normal Sensation, Normal Gait Psychological: Normal affect, Normal Mood Diagnostic/Tx/Re-eval Chest X-Ray - ED: 2 View, Normal, Heart, Bony Structures, Left Infiltrate - There is an infiltrate noted left side near the hilum suspect inferior portion of the upper lobe. - Medical Decision Making Clinically patient has left lower lobe pneumonia. Chest x-ray was obtained to confirm and rule out multilobar pneumonia. ED Disposition - Plan for ED Patient: Disposition: Home or Assisted Living Diagnosis: Community acquired pneumonia Instructions: ED Pneumonia Adult Prescriptions: Doxycycline 100 mg PO BID #14 cap Referrals: Care Physician,No Primary [Primary Care Provider] - Additional Instructions: It is in your best interest to stop smoking. Because you are a smoker you may have a cough up to 4 weeks.
--- NOTE | 2019-02-22 01:45 | RAD_ITS ---
STUDY: X-RAY CHEST REASON FOR EXAM: Male, 38 years old. Cough TECHNIQUE: Frontal and lateral views of the chest. COMPARISON: None. FINDINGS: Left perihilar infiltrate. There is no demonstrated pleural abnormality. Normal size heart. Normal mediastinum and enrique. Normal visualized pulmonary arteries. Normal visualized aortic arch and descending thoracic aorta. Normal visualized thoracic spine. Normal visualized ribs, clavicles, and shoulders. There is no demonstrated abnormality of the visualized soft tissue structures of the upper abdomen. RAD/Chest PA and Lateral IMPRESSION: Left perihilar atelectasis/infiltrate. Electronically Signed: Sampson Valentine, at 2:08 EDT Tel , Service support ,
[2019-02-22] MEDS: Doxycycline 100 MG CAPSULE PO (02:25)
[2019-02-22 02:28] VITALS: BP 143/83; PULSE 100; RESP 16; O2SAT 97
== END 2019-02-22 02:29 | disposition home or self-care (01) ==
PROVIDERS: Emergency Provider Emergency Medicine
DX: J18.9 Pneumonia, unspecified organism (principal); E10.9 Type 1 diabetes mellitus without complications; F17.210 Nicotine dependence, cigarettes, uncomplicated
CPT/HCPCS: 71046; 99283

== ENCOUNTER 2019-09-25 00:04 | Emergency (ER) | payer MEDICAID, SELFPAY ==
[2019-09-25 00:05] VITALS: BP 131/83; PULSE 84; RESP 15; TEMP 36.6; O2SAT 98; BMI 25.3
--- NOTE | 2019-09-25 00:39 | ED.VISSUMM ---
- ER Visit Summary Date of Service: 09/25/19 Chief Complaint: Wrist pain History of Present Illness: The patient is a 39 M with bilateral wrist pain. He feels occasional numbness in his hands. Worse when he flexes at his wrist. Occasionally, he has to shake out his hands. No history of carpal tunnel. No trauma. No skin changes, fever, redness, warmth. Physical Examination: Afebrile and vital signs unremarkable. Inspection is unremarkable. Range of motion is intact. Good strength and sensation. Neurovascularly intact. Positive Phalen and Tinel sign. Test Results: None indicated Emergency Department Course and Treatment: Patient has signs and symptoms of carpal tunnel syndrome bilaterally. He will be treated with anti-inflammatories and splints. Follow-up with hand surgery. Treatment Plan: As above Disposition: Discharge Impression: Bilateral wrist pain This note was generated with [employer] dictation software. It may contain incorrect words, spelling, and punctuation that were not noted in review of the chart prior to signing ED Disposition - Plan for ED Patient: Referrals: Care Physician,No Primary [Primary Care Provider] -
--- NOTE | 2019-09-25 00:41 | ED.DEP ---
ED Disposition - Plan for ED Patient: Instructions: Carpal Tunnel Syndrome Prevention Tips Referrals: Wilbur Felipe MD [STAFF PHYSICIAN] -
[2019-09-25] MEDS: Acetaminophen 500 MG Tablet 1000 MG PO (00:43)
[2019-09-25 00:56] VITALS: RESP 15
== END 2019-09-25 00:58 | disposition home or self-care (01) ==
LOC: ED 00:33
PROVIDERS: Emergency Provider Emergency Medicine
DX: M25.531 Pain in right wrist (principal); M25.532 Pain in left wrist; R25.1 Tremor, unspecified; R20.0 Anesthesia of skin; Z72.0 Tobacco use
CPT/HCPCS: 99283

== ENCOUNTER 2020-07-21 03:29 | Emergency (ER) | payer MEDICAID, SELFPAY ==
[2019-12-29 17:56] VITALS: BMI 25.3
[2020-07-21 03:30] VITALS: BP 169/92; PULSE 96; RESP 16; TEMP 36.2; O2SAT 99; BMI 24.3
--- NOTE | 2020-07-21 03:44 | RAD_ITS ---
STUDY: X-RAY - RIGHT HAND REASON FOR EXAM: Male, 39 years old. Pain to hand specifically in thumb area started today. No known injury. TECHNIQUE: History view(s) of the hand. COMPARISON: None. FINDINGS: Normal radiocarpal articulation. Normal distal radioulnar joint. Normal visualized carpal bones. Normal carpal articulations Normal carpometacarpal articulation of the thumb. Normal second through fifth carpometacarpal joints. Normal metacarpi. Normal metacarpophalangeal joint of the thumb. Normal interphalangeal joint of the thumb. Normal proximal and distal phalanges of the thumb. Normal metacarpophalangeal joints of the second through fifth fingers. Normal proximal and distal interphalangeal joints of the second through fifth fingers. Normal phalanges of the second through fifth fingers. Small calcifications in the soft tissue swelling adjacent to the distal end of the ulna may represent chip fracture or heterotopic ossification. Further evaluation by CT scan can''t be helpful. RAD/Hand Min 3 Views IMPRESSION: Small calcifications in the soft tissue swelling adjacent to the distal end of the ulna may represent chip fracture or heterotopic ossification. Further evaluation by CT scan can''t be helpful. Electronically Signed: Elsie Gerard, at 4:57 EDT Tel , Service support ,
--- NOTE | 2020-07-21 03:45 | ED.DCSUM_ITS ---
History of Present Illness Chief Complaint: Upper Extremity Injury Informant: Patient Onset: Yesterday Context: Gradual Onset Current Severity: Moderate Maximum Severity: Moderate Narrative: Patient presents with pain and swelling to his right thumb. 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 He noted yesterday he developed pain to the base of his right thumb. He is right-hand dominant. No fevers or chills. He states his blood sugars have been running a little high and he attributed this to starting a new job and working more hours. He is on an insulin pump. - Past Medical History (1) Type 1 diabetes mellitus Status: Chronic (2) Asthma Status: Chronic (3) Anxiety and depression Status: Chronic Past Medical History - Allergies and Home Meds Allergies/Adverse Reactions: Allergies fexofenadine [From Funmi] Adverse Reaction (Verified 07/21/20 03:36) Vomiting meloxicam Adverse Reaction (Verified 07/21/20 03:36) Vomiting Primary Care Physician: Care Physician,No Primary [Primary Care Provider] - Prior records reviewed: Yes Surgical History: no surgical history Smoking Status: Current every day smoker - Family History Maternal Family History: Reports: No pertinent history Paternal Family History: Reports: No pertinent history Review of Systems General: Denies: Chills, Fever Eyes: Denies: Visual changes - bilaterally ENT: Denies: Bilateral ear pain Cardiovascular: Denies: Chest pain Respiratory: Denies: Dyspnea, Cough Gastrointestinal: Denies: Abdominal pain Musculoskeletal: Reports: Swelling, Extremity Pain Neurological: Denies: Weakness, Parasthesia Hematologic: Denies: Easy bruising, Easy bleeding Allergy: Denies: Uticaria Physical Exam Vital Signs/Narrative: Vital Signs Temp Pulse Resp BP Pulse Ox 07/21/20 03:30 97.1 F L 96 16 169/92 H 99 Inital Vital Signs reviewed: Yes General: Well nourished, Well developed Head: Normocephalic ENT: Moist mucous membranes Neck: Supple Cardiovascular: Regular rate, Regular rhythm Respiratory: No distress, CTA bilaterally Abdomen: Soft, Nontender Extremities: - - Mild erythema and warmth with tenderness at the MCP joint of the right thumb. Remainder of thumb is unaffected. No open wounds or lesions. Good range of motion. Neurological: Alert, Oriented x3 Psychological: Normal affect Diagnostic/Tx/Re-eval Hand x-rays per my review are unremarkable. MCP joint of the right thumb is clean with no sign of arthritis. - Medical Decision Making Based on his exam I am suspicious that he may have gout at the MCP joint of the right thumb. There are no open wounds to suggest cellulitis. Patient be treated with anti-inflammatories and a steroid burst. He does know that this will cause his blood sugars to go up for a couple days. He will adjust his insulin accordingly. ED Disposition - Plan for ED Patient: Disposition: Home or Assisted Living Diagnosis: Gout Instructions: ED ARTHRITIS Gout Prescriptions: Prednisone [Deltasone] 40 mg PO DAILY #10 tab Transmission Status: Pending to [facility] Naproxen [Naprosyn] 500 mg PO BID PRN PRN #20 tab PRN Reason: Pain Score 4-10/10 Transmission Status: Pending to [facility] Additional Instructions: Follow-up with your doctor on Thursday as scheduled.
[2020-07-21] MEDS: Naproxen 500 MG Tablet PO (04:20)
[2020-07-21] MEDS: predniSONE 20 MG Tablet 40 MG PO (04:20)
[2020-07-21 04:21] VITALS: BP 124/66; PULSE 59; RESP 16; O2SAT 99
== END 2020-07-21 04:22 | disposition home or self-care (01) ==
PROVIDERS: Emergency Provider Emergency Medicine
DX: M10.9 Gout, unspecified (principal); F41.9 Anxiety disorder, unspecified; J45.909 Unspecified asthma, uncomplicated; F17.200 Nicotine dependence, unspecified, uncomplicated; E10.9 Type 1 diabetes mellitus without complications; Z79.4 Long term (current) use of insulin; Z88.8 Allergy status to other drugs, medicaments and biological substances; Z96.41 Presence of insulin pump (external) (internal)
CPT/HCPCS: 73130; 99283